=== PATIENT | female | born 1965 | race African-American/Black ===

== ENCOUNTER 2017-04-23 10:06 | Emergency (ER) | payer MEDICAID, OTHER ==
[~2017-04-23] VITALS: Ht 165.1 cm; Wt 90.0 kg
[~2017-04-23 10:06] MED LIST: ALBUTEROL; BENAZEPRIL; LASIX
[2017-04-23] MEDS ORDERED: KETOROLAC 30MG/ML VIAL IV STA (10:15)
[2017-04-23] MEDS ORDERED: SODIUM CHLORIDE 0.9% 1,000 ML IV ONE (10:15)
[2017-04-23] MEDS ORDERED: ONDANSETRON HCL 4MG/2ML VIAL IV STA ×2 (10:15→12:37)
[2017-04-23 10:45] LABS: BASOPHILS % 0.7 % (0.0-2.0); EOSINOPHILS % 0.5 % (0.0-5.0); HEMATOCRIT. 37.7 % (36.0-48.0); HEMOGLOBIN. 12.2 g/dL (12.0-16.0); LYMPHOCYTES % 14.3 % (20.0-50.0); MEAN CORPUSCULAR VOLUME 80.3 fL (81.0-99.0); MEAN PLATELET VOLUME 7.9 fl (7.4-10.4); MONOCYTES % 4.6 % (2.0-8.0); NEUTROPHILS % 79.9 % (40.0-76.0); PLATELET 429 x1000/uL (130-400); RED CELL DISTRIBUTION WIDTH 15.5 % (11.6-14.6)
[2017-04-23 10:49] LABS: PROTHROMBIN TIME 10.5 sec (9.4-11.6)
[2017-04-23 10:58] LABS: CARBON DIOXIDE 26 mEq/L (21-32); CHLORIDE 104 mEq/L (98-107)
[2017-04-23] MEDS ORDERED: ACETAMINOPHEN WITH CODEINE 300/30MG TABLET PO ONE (12:15)
[2017-04-23] MEDS ORDERED: MORPHINE SULFATE 4 MG/ML CPJ (NOT FOR IM USE) IV STA (12:37)
[2017-04-23 12:56] LABS: CLARITY URINE CLEAR (CLEAR); COLOR URINE YELLOW (YELLOW); GLUCOSE URINE NEGATIVE (NEGATIVE); KETONES URINE 1+ (NEGATIVE); LEUKOCYTE ESTERASE URINE NEGATIVE (NEGATIVE); NITRITE URINE NEGATIVE (NEGATIVE); OCCULT BLOOD URINE 2+ (NEGATIVE); PH URINE >=9.0 (4.5-8.0); PROTEIN URINE NEGATIVE (NEGATIVE); SPECIFIC GRAVITY URINE 1.018 (1.005-1.030); UROBILINOGEN URINE 0.2 E.U./dL (0.2-1.0)
[2017-04-23 16:15] VITALS: BP 162/79
== END 2017-04-23 16:29 | disposition home or self-care (01) ==
LOC: ER 10:21
DX: R10.32 Left lower quadrant pain (principal); R07.89 Other chest pain; R00.1 Bradycardia, unspecified; I10 Essential (primary) hypertension; J44.9 Chronic obstructive pulmonary disease, unspecified
CPT/HCPCS: 36415; 74176; 80053; 81001; 83690; 84484; 85025; 85610; 93005; 96361; 96374; 96375; 96376; 99285; J1885; J2270; J2405; J7030; Z7610

== ENCOUNTER 2017-06-24 10:27 | Emergency (ER) | payer OTHER ==
[~2017-06-24] VITALS: Ht 170.2 cm; Wt 100.0 kg
[2017-06-24] MEDS ORDERED: KETOROLAC 30MG/ML VIAL IV STA (11:11)
[2017-06-24] MEDS ORDERED: ONDANSETRON HCL 4MG/2ML VIAL IV STA (11:11)
[2017-06-24] MEDS ORDERED: MORPHINE SULFATE 4 MG/ML CPJ (NOT FOR IM USE) IV STA (11:11)
[2017-06-24] MEDS ORDERED: SODIUM CHLORIDE 0.9% 1,000 ML IV ONE (11:11)
[2017-06-24 11:32] VITALS: BP 83/56
[2017-06-24 11:35] LABS: CLARITY URINE CLEAR (CLEAR); COLOR URINE YELLOW (YELLOW); KETONES URINE TRACE (NEGATIVE); LEUKOCYTE ESTERASE URINE NEGATIVE (NEGATIVE); NITRITE URINE NEGATIVE (NEGATIVE); OCCULT BLOOD URINE NEGATIVE (NEGATIVE); PH URINE 5.5 (4.5-8.0); PROTEIN URINE TRACE (NEGATIVE); UROBILINOGEN URINE 0.2 E.U./dL (0.2-1.0)
[2017-06-24 11:41] LABS: EOSINOPHILS % 0.8 % (0.0-5.0); HEMATOCRIT. 33.3 % (36.0-48.0); HEMOGLOBIN. 10.3 g/dL (12.0-16.0); LYMPHOCYTES % 15.2 % (20.0-50.0); MEAN CORPUSCULAR HEMOGLOBIN 22.9 pg (28.0-32.0); MEAN PLATELET VOLUME 7.3 fl (7.4-10.4); MONOCYTES % 3.7 % (2.0-8.0); NEUTROPHILS % 79.3 % (40.0-76.0); PLATELET 555 x1000/uL (130-400); RED BLOOD CELL COUNT 4.49 mill/uL (4.2-5.4); RED CELL DISTRIBUTION WIDTH 17.8 % (11.6-14.6)
[2017-06-24 11:51] LABS: INR 1.1; PARTIAL THROMBOPLASTIN TIME 24.6 sec (23.4-31.0); PROTHROMBIN TIME 11.3 sec (9.4-11.6)
[2017-06-24 12:15] LABS: CARBON DIOXIDE 21 mEq/L (21-32); CHLORIDE 106 mEq/L (98-107)
== END 2017-06-24 15:56 | disposition home or self-care (01) ==
LOC: ER 10:33
DX: D25.9 Leiomyoma of uterus, unspecified (principal); J44.9 Chronic obstructive pulmonary disease, unspecified; I10 Essential (primary) hypertension; Z87.440 Personal history of urinary (tract) infections
CPT/HCPCS: 36415; 71045; 74176; 80053; 81001; 81025; 83690; 85025; 85610; 85730; 86850; 86900; 86901; 93005; 96361; 96374; 96375; 99285; J1885; J2270; J2405; J7030

== ENCOUNTER 2018-01-31 14:05 | Emergency (ER) | payer OTHER ==
[~2018-01-31] VITALS: Ht 170.2 cm; Wt 100.0 kg
[2018-01-31 14:12] VITALS: BP 145/98
[2018-01-31] MEDS ORDERED: DIPHENHYDRAMINE 25MG CAPSULE PO ONE (14:45)
== END 2018-01-31 18:25 | disposition home or self-care (01) ==
LOC: ER 14:05
DX: B35.4 Tinea corporis (principal); J44.9 Chronic obstructive pulmonary disease, unspecified; I10 Essential (primary) hypertension; Z96.659 Presence of unspecified artificial knee joint
CPT/HCPCS: 99283; Q0163

== ENCOUNTER 2018-08-12 10:18 | Emergency (ER) | payer OTHER ==
[~2018-08-12] VITALS: Ht 154.9 cm; Wt 107.0 kg
[2018-08-12 13:20] VITALS: BP 157/88
== END 2018-08-12 13:21 | disposition home or self-care (01) ==
LOC: ER 10:23
DX: R21 Rash and other nonspecific skin eruption (principal); I10 Essential (primary) hypertension; J44.9 Chronic obstructive pulmonary disease, unspecified; Z96.659 Presence of unspecified artificial knee joint
CPT/HCPCS: 99283

== ENCOUNTER 2021-08-20 10:01 | Emergency (ER) | payer OTHER ==
[~2021-08-20] VITALS: Ht 162.6 cm; Wt 100.0 kg
[2021-08-20 10:03] VITALS: BP 168/100
[2021-08-20] MEDS ORDERED: GABA100C MT (10:25)
[2021-08-20] MEDS ORDERED: ACYC200C31 MT ×2 (10:25→10:28)
[2021-08-20] MEDS ORDERED: DIPH28.34 TP (10:25)
== END 2021-08-20 10:56 | disposition home or self-care (01) ==
LOC: ER 10:11
DX: B01.9 Varicella without complication (principal); I10 Essential (primary) hypertension; J44.9 Chronic obstructive pulmonary disease, unspecified; Z96.659 Presence of unspecified artificial knee joint
CPT/HCPCS: 99283

== ENCOUNTER 2022-01-30 11:50 | Emergency (ER) | payer MEDICAID, OTHER ==
[~2022-01-30] VITALS: Ht 154.9 cm; Wt 100.0 kg
[~2022-01-30 11:50] MED LIST changes: +ACYC200C31 MT; +DIPH28.34 TP; +GABA100C MT
[2022-01-30 11:53] VITALS: BP 155/92
[2022-01-30] MEDS ORDERED: IBUP-2028 MT (16:31)
== END 2022-01-30 16:41 | disposition home or self-care (01) ==
LOC: ER 13:06
DX: M79.641 Pain in right hand (principal); I10 Essential (primary) hypertension
CPT/HCPCS: 73130; 99283

== ENCOUNTER 2023-02-15 21:29 | Emergency (ER) | payer MEDICAID, OTHER ==
[~2023-02-15] VITALS: Ht 154.9 cm; Wt 109.0 kg
[~2023-02-15 21:29] MED LIST changes: +IBUP-2028 MT
[2023-02-15 22:37] VITALS: BP 178/107; O2SAT 97
[2023-02-15] MEDS ORDERED: CEPH500C2 MT (23:27)
[2023-02-15 23:29] LABS: CLARITY URINE CLOUDY (CLEAR); COLOR URINE DARK YELLOW (YELLOW); GLUCOSE URINE NEGATIVE (NEGATIVE); KETONES URINE NEGATIVE (NEGATIVE); LEUKOCYTE ESTERASE URINE TRACE (NEGATIVE); NITRITE URINE NEGATIVE (NEGATIVE); OCCULT BLOOD URINE NEGATIVE (NEGATIVE); PH URINE 5.5 (4.5-8.0); PROTEIN URINE 1+ (NEGATIVE)
[2023-02-15] MEDS ORDERED: CEPHALEXIN 250MG CAPSULE PO ONE (23:30)
[2023-02-15 23:53] VITALS: PULSE 68; RESP 18; TEMP 98.2
[2023-02-16 02:00] LABS: SQUAMOUS EPITHELIAL CELL URINE FEW /lpf (RARE/1+)
[2023-02-16 02:04] LABS: RBC URINE 0-2 /hpf (0-2)
[2023-02-16 02:07] LABS: BACTERIA URINE 1+
== END 2023-02-15 23:55 | disposition home or self-care (01) ==
LOC: ER 21:40
DX: L73.9 Follicular disorder, unspecified (principal); F19.90 Other psychoactive substance use, unspecified, uncomplicated; I10 Essential (primary) hypertension; Z98.890 Other specified postprocedural states
CPT/HCPCS: 81003; 81025; 99284